=== PATIENT | female | born 1940 | race Caucasian/White ===

== ENCOUNTER 2021-05-26 13:36 | Inpatient (IN) | payer MEDICARE ==
[2021-05-26] MEDS ORDERED: niCARdipine 20MG In NaCl 20 MG/200 ML BAG ONE (14:03)
[2021-05-26] MEDS ORDERED: Ondansetron PF 4 MG/2 ML Vial ONE (14:08)
[2021-05-26] MEDS ORDERED: manNITOL 20% 0 ML ONE (14:08)
[2021-05-26] MEDS ORDERED: Fentanyl 100 MCG/2 ML VIAL ONE ×4 (14:10→16:02)
[2021-05-26 14:13] LABS: #Basophils 0.1 thou/uL (0.0-0.2); #Eosinphils 0.2 thou/uL (0.0-0.7); #Lymphocytes 1.5 thou/uL (1.20-3.40); #Monocytes 0.9 thou/uL (0.11-0.59); #Neutrophils 7.9 thou/uL (1.40-6.50); %Basophils 0.7 % (0.0-1.0); %Eosinophils 1.9 % (0.0-10.0); %Lymphocytes 13.9 % (21.0-51.0); %Monocytes 8.4 % (0.0-10.0); %Neutrophils 75.1 % (42.0-75.0); Hemoglobin 15.1 g/dL (12.0-16.0); Mean Corpuscular HGB CONC 32.7 g/dL (32.0-36.0); Mean Platelet Volume 7.4 fL (7.4-10.4); Platelet Count 210 thou/uL (130-400); RBC Distribution Width 11.7 % (11.5-14.5); Red Blood Cell (RBC) Count 4.45 mill/uL (4.20-5.40); White Blood Cell (WBC) Count 10.6 thou/uL (4.8-10.8)
[2021-05-26] MEDS ORDERED: Rocuronium Bromide 10 MG/ML (10ML VIAL) ONE ×2 (14:23→15:18)
[2021-05-26 14:25] LABS: INR-International Normal Ratio 1.1; Prothrombin Time 13.8 sec (12.0-14.7)
[2021-05-26] MEDS ORDERED: Thrombin 5000 UNITS/5 ML VIAL ONE (14:26)
[2021-05-26] MEDS ORDERED: Bacitracin Zinc Ointment 30 gm TUBE ONE (14:26)
[2021-05-26] MEDS ORDERED: Lidocaine 0.5%/Epinephrine 1:200,000 50 ml Vial ONE (14:26)
[2021-05-26] MEDS ORDERED: Phytonadione 10 MG/ML AMP SLOW IVP SCH (14:30)
[2021-05-26] MEDS ORDERED: [UNRECOGNIZED DRUG - OTHER] IV SCH (14:30)
[2021-05-26] MEDS ORDERED: HUM PROTHROMBIN CPLX IV SCH (14:30)
[2021-05-26] MEDS ORDERED: HUMAN PROTHROMBIN COMPLX IV SCH (14:30)
[2021-05-26 14:41] LABS: ALT (SGPT) 18 U/L (8-55); AST (SGOT) 24 U/L (5-34); Albumin 3.8 g/dL (3.4-4.8); Alkaline Phosphatase 88 U/L (40-110); Anion Gap 15 mmol/L (10-20); BUN (Urea Nitrogen) 23 mg/dL (9.8-20.1); CK (CPK) 45 U/L (29-168); Calc. Creatinine Clearance 0 mL/min (70-130); Calcium 9.5 mg/dL (7.8-10.44); Carbon Dioxide 23 mmol/L (23-31); Chloride 104 mmol/L (98-107); Globulin 4.1 g/dL (2.4-3.5); Glucose 181 mg/dL (83-110); Potassium 4.5 mmol/L (3.5-5.1); Protein, Total 7.9 g/dL (5.8-8.1); Sodium 137 mmol/L (136-145)
[2021-05-26] MEDS ORDERED: Rocuronium Bromide 50 MG/5 ML VIAL ONE ×2 (14:44→16:19)
[2021-05-26 14:47] LABS: SARS-CoV-2 NAA Rapid Test Not Detected (NotDetected)
[2021-05-26 14:52] LABS: Actual Bicarbonate (HCO3a) 21.1 mEq/L (22-28); Analyzer IN Cardio ER; Base Excess (BEa) -1.3 mEq/L (-2.0 to +3.0); CO2 Tension 29.9 mmHg (35.0-45.0); Calcium, Ionized (arterial) 1.17 mmol/L (1.12-1.30); Carboxyhemoglobin (COHb) 0.9 gm% (0.0-3.0); Hemoglobin (Hb) 15.4 g/dL (12.0-16.0); O2 Tension (PaO2), arterial 295.6 mmHg (> 70.0); Potassium - ABG Lab 3.48 mmol/L (3.70-5.30); pH, Arterial 7.47 (7.35-7.45)
[2021-05-26 14:53] LABS: ALV-art Gradient 23.525 mmHg (0-20); Puncture Site RBA
[2021-05-26] MEDS ORDERED: Phytonadione 10 MG/ML AMP ONE (14:53)
[2021-05-26 14:54] LABS: Bacteria/HPF None Seen HPF (None Seen); Bilirubin Negative (Negative); Blood, Urine 1+ (Negative); Clarity Clear (Clear); Glucose, Urine (Dipstick) 300 mg/dL (Negative); Ketone, Urine Negative (Negative); Leukocyte Negative Leu/uL (Negative); Nitrite Negative (Negative); Protein, Urine (Dipstick) 100 mg/dL (Neg-Trace); RBC/HPF 0-3 HPF (0-3); Squamous Epithelial 0-3 HPF (0-3); Urobilinogen Normal mg/dL (Less than 2); WBC/HPF 0-3 HPF (0-3); pH, Urine 7.5 (5.0-9.0)
[2021-05-26] MEDS ORDERED: CEFAZOLIN 1 GM VIAL ONE (15:00)
[2021-05-26] MEDS ORDERED: PROPOFOL 200 MG/20 ML VIAL ONE (15:18)
[2021-05-26] MEDS ORDERED: Dextrose 5% in Water 1,000 ML IV PRN (15:23)
[2021-05-26] MEDS ORDERED: Dextrose 50% Abboject 50 ML SYRINGE SLOW IVP PRN (15:23)
[2021-05-26] MEDS ORDERED: Acetaminophen 325 MG/10.15 ML UDCUP PER TUBE PRN (15:29)
[2021-05-26] MEDS ORDERED: Ventilator Sedation Protocol 1 EACH FS ONE (15:29)
[2021-05-26] MEDS ORDERED: Morphine 2 MG/ML VIAL SLOW IVP PRN (15:45)
[2021-05-26] MEDS ORDERED: Propofol 1,000 MG/100 ML VIAL IV PRN (15:45)
[2021-05-26] MEDS ORDERED: Lorazepam 2 MG/ML VIAL SLOW IVP PRN (15:45)
[2021-05-26] MEDS ORDERED: Fentanyl BOLUS 250 ML IVPB PRN (15:45)
[2021-05-26] MEDS ORDERED: Propofol BOLUS 1,000 MG/100 ML VIAL IV PRN (15:45)
[2021-05-26] MEDS ORDERED: DISCONTINUE PREVIOUS NARCOTIC PAIN MEDICATIONS AND BENZODIAZEPINES FS SCH (15:45)
[2021-05-26] MEDS ORDERED: Fentanyl CADD 100 ML IV SCH (15:45)
[2021-05-26 15:52] LABS: Phosphorus 2.6 mg/dL (2.3-4.7)
[2021-05-26 16:07] LABS: Prothrombin Time 12.8 sec (12.0-14.7)
[2021-05-26] MEDS: hydrALAZINE 20 MG/ML VIAL SLOW IVP PRN (17:18)
[2021-05-26 17:26] LABS: Actual Bicarbonate (HCO3a) 22.7 mEq/L (22-28); Base Excess (BEa) -1.9 mEq/L (-2.0 to +3.0); CO2 Tension 38.5 mmHg (35.0-45.0); Calcium, Ionized (arterial) 1.14 mmol/L (1.12-1.30); Carboxyhemoglobin (COHb) 0.3 gm% (0.0-3.0); Hemoglobin (Hb) 14.2 g/dL (12.0-16.0); O2 Tension (PaO2), arterial 113.7 mmHg (> 70.0); Potassium - ABG Lab 3.45 mmol/L (3.70-5.30); pH, Arterial 7.39 (7.35-7.45)
[2021-05-26 17:29] LABS: Puncture Site Arterial Line
[2021-05-26 17:30] LABS: ALV-art Gradient 123.375 mmHg (0-20)
[2021-05-26] MEDS ORDERED: niCARdipine 25 MG in Sodium Chloride 0.9% 250 ML 250 ML IVPB SCH (17:30)
[2021-05-26] MEDS ORDERED: niCARdipine 40MG In NaCl 40 MG/200 ML BAG IVPB SCH (17:30)
[2021-05-26] MEDS: Sodium Chloride 0.9% 1,000 ML IV SCH (17:31)
[2021-05-26 18:43] VITALS: BMI 42.2
[2021-05-26] MEDS: Insulin Regular 300 UNITS/3 ML VIAL SC PRN (19:27)
[2021-05-26] MEDS: Famotidine/PF 20 mg/2ml Vial SLOW IVP SCH (21:58)
[2021-05-26] MEDS ORDERED: CEFAZOLIN 1 GM VIAL SLOW IVP SCH (22:00)
[2021-05-26] MEDS ORDERED: Sodium Chloride 0.9% 1,000 ML IV SCH (22:30)
[2021-05-27] MEDS: ceFAZolin Sodium/D5W 2 GM in Premix Bag 1 BAG IVPB SCH ×4 (00:09→23:18)
[2021-05-27] MEDS: Insulin Regular 300 UNITS/3 ML VIAL SC PRN ×2 (00:28→10:50)
[2021-05-27] MEDS ORDERED: Atropine Sulfate 1 mg/10 ml Syringe IVP PRN (02:20)
[2021-05-27 02:51] LABS: #Lymphocytes 0.7 thou/uL (1.20-3.40); #Monocytes 1.2 thou/uL (0.11-0.59); %Basophils 0.1 % (0.0-1.0); %Eosinophils 0.1 % (0.0-10.0); %Lymphocytes 6.3 % (21.0-51.0); %Monocytes 11.3 % (0.0-10.0); %Neutrophils 82.2 % (42.0-75.0); Hemoglobin 12.3 g/dL (12.0-16.0); Mean Corpuscular HGB CONC 34.5 g/dL (32.0-36.0); Mean Corpuscular Hemoglobin 35.8 pg (27.0-31.0); Mean Platelet Volume 7.9 fL (7.4-10.4); Platelet Count 234 thou/uL (130-400); RBC Distribution Width 11.7 % (11.5-14.5); Red Blood Cell (RBC) Count 3.44 mill/uL (4.20-5.40); White Blood Cell (WBC) Count 10.9 thou/uL (4.8-10.8)
[2021-05-27 02:55] LABS: INR-International Normal Ratio 1.1; Prothrombin Time 14.7 sec (12.0-14.7)
[2021-05-27 02:56] LABS: PTT 31.4 sec (22.9-36.1)
[2021-05-27] MEDS: Sodium Chloride 0.9% 1,000 ML IV SCH ×3 (02:57→21:21)
[2021-05-27 03:27] LABS: Anion Gap 13 mmol/L (10-20); BUN (Urea Nitrogen) 28 mg/dL (9.8-20.1); Calc. Creatinine Clearance 52 mL/min (70-130); Calcium 8.1 mg/dL (7.8-10.44); Carbon Dioxide 21 mmol/L (23-31); Chloride 107 mmol/L (98-107); Glucose 182 mg/dL (83-110); Magnesium 1.7 mg/dL (1.6-2.6); Potassium 4.4 mmol/L (3.5-5.1); Sodium 137 mmol/L (136-145)
[2021-05-27] MEDS ORDERED: Magnesium 2 GM/50 ML 2 GM in Premix Bag 1 BAG IVPB SCH (03:30)
[2021-05-27 03:47] LABS: Phosphorus 3.1 mg/dL (2.3-4.7)
[2021-05-27 03:48] LABS: Troponin I 0.083 ng/mL (< 0.028)
[2021-05-27] MEDS: hydrALAZINE 20 MG/ML VIAL SLOW IVP PRN ×2 (04:00→13:39)
[2021-05-27] MEDS ORDERED: FLU VACC QS2021-22(65YR UP)/PF 240 MCG/0.7 ML SYRINGE IM ONE (09:00)
[2021-05-27] MEDS ORDERED: Magnesium Sulfate 3 GM in Sodium Chloride 0.9% 100 ML IVPB SCH (09:00)
[2021-05-27] MEDS: Famotidine/PF 20 mg/2ml Vial SLOW IVP SCH ×2 (09:04→21:10)
[2021-05-27] MEDS: Ondansetron PF 4 MG/2 ML Vial IVP PRN (13:39)
[2021-05-27] MEDS ORDERED: Acetaminophen/Codeine 30-300mg Tablet PO PRN (17:29)
[2021-05-27] MEDS: Acetaminophen 650 MG/20.3 ML UDCUP PO SCH (18:45)
[2021-05-27] MEDS: Carvedilol 3.125 MG TAB PO SCH (21:09)
[2021-05-28] MEDS: Acetaminophen 650 MG/20.3 ML UDCUP PO SCH ×2 (00:15→06:26)
[2021-05-28 04:13] LABS: INR-International Normal Ratio 1.2; PTT 30.2 sec (22.9-36.1); Prothrombin Time 15.5 sec (12.0-14.7)
[2021-05-28 04:19] LABS: #Lymphocytes 0.8 thou/uL (1.20-3.40); #Monocytes 1.7 thou/uL (0.11-0.59); #Neutrophils 9.8 thou/uL (1.40-6.50); %Basophils 0.2 % (0.0-1.0); %Eosinophils 0.2 % (0.0-10.0); %Lymphocytes 6.3 % (21.0-51.0); %Monocytes 13.9 % (0.0-10.0); %Neutrophils 79.4 % (42.0-75.0); Hemoglobin 11.9 g/dL (12.0-16.0); Mean Corpuscular HGB CONC 33.2 g/dL (32.0-36.0); Mean Platelet Volume 7.5 fL (7.4-10.4); Platelet Count 178 thou/uL (130-400); RBC Distribution Width 12.1 % (11.5-14.5); White Blood Cell (WBC) Count 12.4 thou/uL (4.8-10.8)
[2021-05-28 04:30] LABS: Anion Gap 12 mmol/L (10-20); BUN (Urea Nitrogen) 29 mg/dL (9.8-20.1); Calc. Creatinine Clearance 48 mL/min (70-130); Calcium 8.3 mg/dL (7.8-10.44); Carbon Dioxide 21 mmol/L (23-31); Chloride 107 mmol/L (98-107); Glucose 162 mg/dL (83-110); Phosphorus 3.1 mg/dL (2.3-4.7); Potassium 3.7 mmol/L (3.5-5.1); Sodium 136 mmol/L (136-145)
[2021-05-28] MEDS: ceFAZolin Sodium/D5W 2 GM in Premix Bag 1 BAG IVPB SCH ×3 (06:26→22:46)
[2021-05-28] MEDS: Levothyroxine Sodium 88 MCG TAB PO SCH (06:26)
[2021-05-28] MEDS: Sodium Chloride 0.9% 1,000 ML IV SCH ×2 (08:00→16:52)
[2021-05-28] MEDS: Carvedilol 3.125 MG TAB PO SCH ×2 (09:04→20:46)
[2021-05-28] MEDS: Famotidine/PF 20 mg/2ml Vial SLOW IVP SCH (09:04)
[2021-05-28] MEDS: Rosuvastatin 20 MG TAB PO SCH (09:07)
[2021-05-28] MEDS: Ondansetron PF 4 MG/2 ML Vial IVP PRN (09:30)
[2021-05-28] MEDS ORDERED: Acetaminophen 650 MG/20.3 ML UDCUP PO PRN (09:45)
[2021-05-28] MEDS ORDERED: Acetaminophen 325 MG TAB PO PRN (09:45)
[2021-05-28] MEDS: Insulin Regular 300 UNITS/3 ML VIAL SC PRN (11:26)
[2021-05-28] MEDS: hydrALAZINE 20 MG/ML VIAL SLOW IVP PRN (18:21)
[2021-05-28] MEDS ORDERED: Acetaminophen 325 MG TAB PO SCH ×2 (20:45→23:59)
[2021-05-29 05:30] LABS: Hemoglobin 11.2 g/dL (12.0-16.0); Mean Corpuscular HGB CONC 33.3 g/dL (32.0-36.0); Mean Corpuscular Hemoglobin 34.7 pg (27.0-31.0); Mean Platelet Volume 7.8 fL (7.4-10.4); Platelet Count 181 thou/uL (130-400); RBC Distribution Width 11.9 % (11.5-14.5); Red Blood Cell (RBC) Count 3.23 mill/uL (4.20-5.40); White Blood Cell (WBC) Count 11.5 thou/uL (4.8-10.8)
[2021-05-29 05:42] LABS: Anion Gap 12 mmol/L (10-20); BUN (Urea Nitrogen) 29 mg/dL (9.8-20.1); Calc. Creatinine Clearance 53 mL/min (70-130); Calcium 8.3 mg/dL (7.8-10.44); Carbon Dioxide 18 mmol/L (23-31); Chloride 106 mmol/L (98-107); Glucose 158 mg/dL (83-110); Magnesium 2.5 mg/dL (1.6-2.6); Phosphorus 2.9 mg/dL (2.3-4.7); Potassium 3.8 mmol/L (3.5-5.1); Sodium 132 mmol/L (136-145)
[2021-05-29] MEDS: Acetaminophen 500 MG TAB PO SCH ×4 (06:17→23:05)
[2021-05-29] MEDS: Levothyroxine Sodium 88 MCG TAB PO SCH (06:17)
[2021-05-29] MEDS: ceFAZolin Sodium/D5W 2 GM in Premix Bag 1 BAG IVPB SCH ×3 (06:18→23:04)
[2021-05-29 06:19] LABS: Band 9 % (5-11); Lymphocytes 13 % (21-51); MDiff Complete? YES; Monocytes 8 % (0-10); Neutrophil 70 % (42-75)
[2021-05-29] MEDS: Polyethylene Glycol 3350 17 GM Packet PO SCH (09:19)
[2021-05-29] MEDS: Famotidine/PF 20 mg/2ml Vial SLOW IVP SCH (10:03)
[2021-05-29] MEDS: Carvedilol 3.125 MG TAB PO SCH ×2 (10:03→22:01)
[2021-05-29] MEDS: Rosuvastatin 20 MG TAB PO SCH (10:03)
[2021-05-29] MEDS: Senokot S 8.6-50 MG TAB PO SCH ×2 (10:04→22:01)
[2021-05-29] MEDS: hydrALAZINE 20 MG/ML VIAL SLOW IVP PRN (13:47)
[2021-05-29] MEDS: Insulin Regular 300 UNITS/3 ML VIAL SC PRN (17:57)
[2021-05-30] MEDS: hydrALAZINE 20 MG/ML VIAL SLOW IVP PRN (03:34)
[2021-05-30] MEDS: Levothyroxine Sodium 88 MCG TAB PO SCH (05:39)
[2021-05-30] MEDS: Acetaminophen 500 MG TAB PO SCH ×2 (05:39→11:44)
[2021-05-30] MEDS: ceFAZolin Sodium/D5W 2 GM in Premix Bag 1 BAG IVPB SCH (06:11)
[2021-05-30 06:37] LABS: Anion Gap 11 mmol/L (10-20); BUN (Urea Nitrogen) 27 mg/dL (9.8-20.1); Calc. Creatinine Clearance 57 mL/min (70-130); Calcium 8.7 mg/dL (7.8-10.44); Carbon Dioxide 20 mmol/L (23-31); Chloride 108 mmol/L (98-107); Glucose 130 mg/dL (83-110); Magnesium 2.4 mg/dL (1.6-2.6); Phosphorus 3.3 mg/dL (2.3-4.7); Potassium 4.4 mmol/L (3.5-5.1); Sodium 135 mmol/L (136-145)
[2021-05-30] MEDS: Carvedilol 3.125 MG TAB PO SCH (08:34)
[2021-05-30] MEDS: Famotidine/PF 20 mg/2ml Vial SLOW IVP SCH (08:34)
[2021-05-30] MEDS: Senokot S 8.6-50 MG TAB PO SCH (08:34)
[2021-05-30] MEDS: Polyethylene Glycol 3350 17 GM Packet PO SCH (08:34)
[2021-05-30] MEDS: Rosuvastatin 20 MG TAB PO SCH (08:34)
[2021-05-30] MEDS ORDERED: Famotidine/PF 20 mg/2ml Vial SLOW IVP SCH (09:00)
[2021-05-30] MEDS ORDERED: Magnesium Citrate 300 ML BOT PO SCH (10:45)
[2021-05-30] MEDS: Ondansetron PF 4 MG/2 ML Vial IVP PRN (11:47)
[2021-05-30 16:14] VITALS: BP 131/83; TEMP 98
== END 2021-05-30 17:35 | DRG 25 ==
LOC: ERS 13:36 → SDC 15:03 → CCU 15:29 → SJJU 05-28 12:41
PROVIDERS: ADMIT Specialist; ATTEND Specialist
PROC: 00C40ZZ Extirpation of Matter from Intracranial Subdural Space, Open Approach (ICD-10-PCS; principal; 2021-05-26)
DX: S06.5X9A Traumatic subdural hemorrhage with loss of consciousness of unspecified duration, initial encounter (principal); S06.A1XA Traumatic brain compression with herniation, initial encounter; N17.9 Acute kidney failure, unspecified; Z99.11 Dependence on respirator [ventilator] status; Z68.41 Body mass index [BMI] 40.0-44.9, adult; E87.1 Hypo-osmolality and hyponatremia; Z20.822 Contact with and (suspected) exposure to COVID-19; R40.2112 Coma scale, eyes open, never, at arrival to emergency department; E66.9 Obesity, unspecified; E78.5 Hyperlipidemia, unspecified; R40.2212 Coma scale, best verbal response, none, at arrival to emergency department; R40.2352 Coma scale, best motor response, localizes pain, at arrival to emergency department; I48.91 Unspecified atrial fibrillation; W18.30XA Fall on same level, unspecified, initial encounter; Z79.01 Long term (current) use of anticoagulants
CPT/HCPCS: 31500; 36415; 36416; 36430; 36600; 51702; 70450; 71045; 72125; 80048; 80053; 81003; 81015; 82550; 82805; 83605; 83735; 84100; 84484; 85025; 85610; 85730; 86850; 86900; 86901; 87040; 87086; 87149; 93005; 93010; 94002; 94003; 94760; 96365; 96375; C1713; G0390; J0360; J0690; J1815; J2001; J2405; J2704; J3010; J3430; J3475; J3490; J7030; J7050; J7168; J7799; P9035; S0028; U0002

== ENCOUNTER 2021-07-23 13:50 | Emergency (ER) | payer MEDICARE ==
[2021-07-23 18:40] LABS: SARS-CoV-2 PCR by NAA DETECTED (NotDetected)
== END 2021-07-23 16:15 ==
LOC: ERS 13:50
DX: U07.1 COVID-19 (principal)
CPT/HCPCS: U0003; U0005

== ENCOUNTER 2021-08-11 11:55 | Outpatient (CLI) | payer MEDICARE | END 2021-08-11 11:56 | disposition home or self-care (01) | LOC: CT 11:55 | PROVIDERS: ATTEND Physician Assistant | DX: S06.5X0D Traumatic subdural hemorrhage without loss of consciousness, subsequent encounter (principal) | CPT/HCPCS: 70450 ==